=== PATIENT | male | born 1955 | race Caucasian/White ===

== ENCOUNTER 2017-06-09 04:08 | Emergency (ER) | payer OTHER ==
[~2017-06-09] VITALS: Ht 185.4 cm; Wt 92.6 kg
[2017-06-09 04:38] LABS: HEMATOCRIT 51.6 % (38.0-50.0); MCH 31.2 PG (29.0-34.0); MCHC 34.5 G/DL (30.0-36.0); MCV 90.4 FL (86-99); MEAN PLAT.VOLUME 9.5 uM^3 (9.0-12.4); PLATELET COUNT 221 K/uL (156-360); RBC DIS.WIDTH-CV 12.4 % (11.8-14.6); RBC DIS.WIDTH-SD 40.8 % (39-53); RED BLOOD COUNT 5.71 M/uL (4.00-5.50); WHITE BLOOD COUNT 8.1 K/uL (4.1-10.2)
[2017-06-09 04:45] LABS: CHLORIDE 108 mEq/L (99-109); POTASSIUM 3.7 mEq/L (3.7-5.4); SODIUM 142 mEq/L (136-147)
[2017-06-09 04:47] LABS: GLUCOSE 136 mg/dL (70-99)
[2017-06-09 04:48] LABS: ANION GAP 12 MEQ/L (2-14)
[2017-06-09 04:49] LABS: TOTAL BILIRUBIN 0.7 mg/dL (0.0-1.0)
[2017-06-09 04:51] LABS: ALKALINE PHOSPHATASE 96 IU/L (3-129); GFR ESTIMATE (CALCULATED) > 59 mL/min/
[2017-06-09 04:52] LABS: UREA NITROGEN (BUN) 19 mg/dL (9-23)
[2017-06-09] MEDS ORDERED: PERCOCET 5/31 TABLET PO (05:09)
[2017-06-09] MEDS ORDERED: FLOMAX0.4 MG PO (05:09)
[2017-06-09] MEDS ORDERED: ZOFRAN ODT4 MG PO (05:09)
[2017-06-09 05:24] LABS: ADD MIUA? YES; BILIRUBIN NEGATIVE; BLOOD SMALL; COLOR YELLOW ((YELLOW)); GLUCOSE (STRIP) NEGATIVE; KETONES NEGATIVE; LEUKOCYTES NEGATIVE; NITRITE NEGATIVE; PROTEIN (STRIP) NEGATIVE; SPECIFIC GRAVITY 1.025 (1.000-1.030)
[2017-06-09 05:47] LABS: BACTERIA RARE /HPF; CALCIUM OXALATE CRYSTALS RARE /HPF; CASTS NONE SEEN /LPF; CRYSTALS PRESENT; EPITHELIAL CELLS NONE SEEN /HPF; MUCUS RARE /LPF; RED BLOOD CELLS 0-5 /HPF (0-5); UCUL ADDED? NO; WHITE BLOOD CELLS 0-5 /HPF (0-5)
[2017-06-09 05:57] VITALS: BP 155/88
== END 2017-06-09 06:02 | disposition home or self-care (01) ==
LOC: EME 04:08
PROVIDERS: Physician Assistant
DX: N20.1 Calculus of ureter (principal)
CPT/HCPCS: 74176; 80053; 81003; 85027; 99281; 99285; J1885; J2270; J2405; J7030